=== PATIENT | male | born 1985 | race Caucasian/White ===

== ENCOUNTER 2021-04-04 07:02 | Inpatient (IN) | payer BC, MEDICAID ==
[~2021-04-04 07:02] MED LIST: Dexamethasone 4 MG/ML SDV ONE; Glycopyrrolate 0.2 MG/ML 5 ML MDV ONE; Neostigmine Methylsulfate 1 MG/ML 5 ML Syringe ONE; Ondansetron 4 MG/2 ML SDV ONE; Propofol 200 MG/20 ML SDV ONE; Rocuronium 50 MG/5 ML Vial ONE; Succinylcholine 200 MG/10 ML MDV ONE; cefOXitin 2 GM Vial ONE; fentaNYL 250 MCG/5 ML SDV ONE
[2021-04-04] MEDS ORDERED: Scopolamine 1.5 MG Transdermal Patch TOP ONE (07:15)
[2021-04-04] MEDS ORDERED: Celecoxib 200 MG Cap PO ONE (07:15)
[2021-04-04] MEDS ORDERED: Scopolamine 1.5 MG Transdermal Patch TOP SCH (07:15)
[2021-04-04] MEDS ORDERED: Acetaminophen 500 MG Tab PO ONE (07:15)
[2021-04-04] MEDS ORDERED: Dextrose 5%-Lactated Ringers 1,000 ML IV SCH (07:30)
[2021-04-04] MEDS: cefOXitin 2 GM in Sodium Chloride 0.9% 50 ML IV ONE ×2 (08:41→18:03)
[2021-04-04] MEDS ORDERED: Ketamine 50 MG in Sodium Chloride 0.9% 49.5 ML IV SCH (08:45)
[2021-04-04] MEDS ORDERED: Magnesium Sulfate 3.7 GM in Sodium Chloride 0.9% 100 ML IV SCH (08:45)
[2021-04-04] MEDS ORDERED: Ketamine 500 MG/5 ML MDV IV SCH (08:45)
[2021-04-04] MEDS ORDERED: fentaNYL 250 MCG/5 ML SDV ONE ×2 (08:55→09:07)
[2021-04-04] MEDS ORDERED: CHECK SCOPOLAMINE PATCH DAILY TOP SCH (09:00)
[2021-04-04] MEDS ORDERED: Labetalol 20 MG/4 ML Syringe ONE (09:30)
[2021-04-04] MEDS ORDERED: HYDROmorphone 0.5 MG/0.5 ML Syringe IVPUSH PRN (13:00)
[2021-04-04] MEDS ORDERED: Calcium Gluconate 10% 1 GM/10 ML SDV IVPUSH PRN (13:00)
[2021-04-04] MEDS ORDERED: Acetaminophen 500 MG Tab PO PRN (13:00)
[2021-04-04] MEDS ORDERED: HYDROmorphone 1 MG/ML Syringe IV PRN (13:00)
[2021-04-04] MEDS ORDERED: Albuterol/Ipratropium 3.0-0.5 MG/3 ML Neb Soln INH PRN (13:00)
[2021-04-04] MEDS ORDERED: diphenhydrAMINE 50 MG/ML SDV IVPUSH PRN (13:00)
[2021-04-04] MEDS ORDERED: traMADol 50 MG Tab PO PRN (13:00)
[2021-04-04] MEDS ORDERED: Metoclopramide 10 MG/2 ML SDV IVPUSH PRN (13:00)
[2021-04-04] MEDS: hydrOXYzine HCL 100 MG/2 ML SDV IM PRN ×2 (13:13→19:41)
[2021-04-04] MEDS: oxyCODONE 5 MG Tab PO PRN ×2 (13:26→22:57)
[2021-04-04] MEDS: Ondansetron 4 MG/2 ML SDV IVPUSH PRN ×2 (13:26→21:38)
[2021-04-04] MEDS: cefOXitin 2 GM in Sodium Chloride 0.9% 50 ML IV SCH ×2 (13:40→20:46)
[2021-04-04] MEDS: Acetaminophen 500 MG Tab PO SCH ×2 (13:40→21:21)
[2021-04-04] MEDS ORDERED: Pantoprazole 40 MG Vial IVPUSH SCH (14:00)
[2021-04-04] MEDS: Labetalol 20 MG/4 ML Syringe IVPUSH PRN ×3 (15:19→15:58)
--- NOTE | 2021-04-04 15:49 | PCM.EKG ---
#1 Interpretation EKG Date: 04/04/21 Time: 07:24 Rhythm: NSR Rate (Beats/Min): 76 [place]: Normal P-Wave: Present QRS: Normal ST-T: Normal QT: Normal Comparison: NA - No Prior EKG
[2021-04-04] MEDS ORDERED: MVI, Adult with Vitamin K 10 ML, Thiamine 200 MG, Zinc/Copper/Manganese/Selenium 1 ML i... IV SCH ×4 (16:00)
[2021-04-04] MEDS: Heparin Sodium 5,000 Units/ML Vial SUBCUT SCH (20:44)
[2021-04-04] MEDS: Dextrose 5%-Lactated Ringers 1,000 ML IV SCH (21:42)
[2021-04-05] MEDS ORDERED: Iopamidol 612 MG/ML 50 ML SDV PO STA (02:51)
[2021-04-05] MEDS: cefOXitin 2 GM in Sodium Chloride 0.9% 50 ML IV SCH ×4 (03:09→20:15)
[2021-04-05] MEDS: Dextrose 5%-Lactated Ringers 1,000 ML IV SCH (03:41)
[2021-04-05] MEDS: hydrOXYzine HCL 100 MG/2 ML SDV IM PRN (04:28)
[2021-04-05] MEDS: Acetaminophen 500 MG Tab PO SCH ×3 (06:12→22:13)
[2021-04-05] MEDS ORDERED: Ondansetron 4 MG Tab.DIS PO PRN (07:48)
[2021-04-05] MEDS ORDERED: hydrOXYzine HCl 25 MG Tab PO PRN (07:49)
[2021-04-05] MEDS ORDERED: Dextrose 5%-Lactated Ringers 1,000 ML IV SCH (08:00)
[2021-04-05] MEDS: SCOPOLAMINE PATCH CHECK TOP SCH (08:23)
[2021-04-05] MEDS: Celecoxib 200 MG Cap PO SCH ×2 (08:23→22:13)
[2021-04-05] MEDS: Heparin Sodium 5,000 Units/ML Vial SUBCUT SCH ×2 (08:24→20:14)
--- NOTE | 2021-04-05 09:11 | CR ---
UGI Limited HISTORY: Postbariatric surgery FINDINGS: Patient swallowed water-soluble contrast. Upright views of the abdomen show no evidence of extravasation or obstruction. There is a surgical drain in the left upper quadrant. IMPRESSION: Status post bariatric surgery No extravasation or obstruction seen
[2021-04-05] MEDS: Cyclobenzaprine 10 MG Tab PO PRN (10:49)
[2021-04-05] MEDS ORDERED: traMADol 50 MG Tab PO PRN (11:00)
--- NOTE | 2021-04-05 11:15 | PN ---
DATE OF SERVICE: 04/05/2021 SUBJECTIVE: Constantine is postop day #1. His upper GI was normal. He has had 840 in. Urine output is 1050. ROSLYN drain put out 145 of a serosanguineous drainage. REVIEW OF SYSTEMS: Remainder of review of systems negative for any pertinent positives and negatives. OBJECTIVE: GENERAL: Constantine Garcia is a 35-year-old male. He is alert and orientated. VITAL SIGNS: TPR 98.5, 74, 18, blood pressure 130/75. HEENT: Negative. NECK: Supple. HEART: Regular rate and rhythm. LUNGS: Clear. ABDOMEN: Dressings dry and intact. Abdominal binder is on. EXTREMITIES: Without peripheral edema. ASSESSMENT: 1. Diagnostic laparoscopy with partial proximal gastrectomy with Joshua-en-Y gastrojejunostomy. 2. Liver biopsy. 3. Repair of diaphragmatic hernia. 4. Excision of perigastric lymph nodes. POSTOPERATIVE DIAGNOSES: 1. Severe gastroparesis refractory to medical management. 2. Probable small gastrointestinal stromal tumor junction, gastric body and cardia. 3. Marked hepatomegaly. 4. Paraesophageal hernia. 5. Enlarged perigastric lymph nodes. 6. Date of procedure: 04/04/2021. Surgeon: Elias Charles MD. PLAN: 1. Step 2 gastric bypass diet with no cereal. 2. Decrease IV of D5 LR to 100 mL per hour. 3. Atarax 50 mg q.4 hours p.r.n. pain. 4. Dressing off, may shower. 5. Communication order written to have 3 med cups at bedside and to drink 1 every 20 minutes or 3 per hour and record. 6. Continue use of incentive spirometer and ambulation. 7. We will evaluate p.r.n. or in a.m. Kim Tai PA-C /[id number]
[2021-04-05] MEDS ORDERED: Pantoprazole 40 MG Delayed-Release Granules 1 Packet PO SCH (14:00)
[2021-04-05] MEDS ORDERED: MVI, Adult with Vitamin K 10 ML, Thiamine 200 MG, Zinc/Copper/Manganese/Selenium 1 ML i... IV SCH ×4 (16:00)
[2021-04-06] MEDS: cefOXitin 2 GM in Sodium Chloride 0.9% 50 ML IV SCH ×2 (02:41→07:45)
[2021-04-06] MEDS: Acetaminophen 500 MG Tab PO SCH (05:48)
[2021-04-06] MEDS: Heparin Sodium 5,000 Units/ML Vial SUBCUT SCH (07:45)
[2021-04-06] MEDS: Cyclobenzaprine 10 MG Tab PO PRN (07:53)
[2021-04-06] MEDS ORDERED: Cyanocobalamin (Vitamin B12) 1,000 MCG/ML SDV IM ONE (09:00)
[2021-04-06] MEDS: SCOPOLAMINE PATCH CHECK TOP SCH (09:54)
[2021-04-06] MEDS: Celecoxib 200 MG Cap PO SCH (09:54)
--- NOTE | 2021-04-06 12:23 | DISCH ---
ADMISSION DIAGNOSES: 1. Gastroparesis refractory to medical management. 2. Chronic obstructive pulmonary disease. 3. Mild intermittent asthma. 4. Major depression disorder. 5. Post-traumatic stress disorder. 6. Anxiety. 7. Insomnia. 8. Obesity, body mass index 38. 9. Tubular adenoma of colon. 10.Symptoms consistent with irritable bowel syndrome. DISCHARGE DIAGNOSES: 1. Diagnostic laparoscopy with partial proximal gastrectomy with Joshua-en-Y gastrojejunostomy. 2. Liver biopsy. 3. Repair of paraesophageal diaphragmatic hernia. 4. Excision of perigastric lymph nodes. POSTOPERATIVE DIAGNOSES: 1. Severe gastroparesis refractory to medical management. 2. Probable small gastrointestinal stromal tumor junction of the gastric body and cardia. 3. Marked hepatomegaly. 4. Periesophageal hernia. 5. Enlarged perigastric lymph nodes. 6. Date of procedure, 04/04/2021. Surgeon: Elias Charles MD. HISTORY: Porfirio Garcia is a 35-year-old male with longstanding history of severe gastroparesis secondary to medical management. After preoperative evaluation and discussion of possible risks and possible complications, he wished to proceed with surgical procedure. HOSPITAL COURSE: Porfirio had his surgery on 04/04/2021. He had no operative complications. On postop day #1, he was started on a step 2 gastric bypass diet with no cereal. IV was decreased and on postop day #2, he had adequate oral intake. Pain was controlled on energy protocol. He received adequate dietary nutrition. Vital signs were stable. Oral intake adequate and he was able to be discharged to home. PHYSICAL EXAMINATION: GENERAL: Porfirio Garcia is a 35-year-old male, height 6 feet, weight 280 pounds, BMI 38. VITAL SIGNS: TPR is 97, 61, 18, and blood pressure 132/80. HEENT: Negative. NECK: Supple. HEART: Regular rate and rhythm. LUNGS: Clear. ABDOMEN: Incisions look good. ROSLYN drain will be removed and a 4x4 placed over that. Aquacel dressing on. EXTREMITIES: Without peripheral edema. DISPOSITION: Discharged to home. CONDITION: Stable and improving. FOLLOWUP APPOINTMENTS: With Kim Tai PA-C on 04/14/2021 at 9:30 a.m. HOME MEDICATION: Zofran ODT 4 mg every 4 hours p.r.n. nausea and vomiting #30; he has Celebrex 200 mg b.i.d. #28, which was called to his pharmacy prior to surgery; he is to continue Tylenol Extra Strength 1000 mg p.o. q.8 hours scheduled; Zofran ODT 4 mg every 4 hours, #30; he is to resume home medication tramadol 50 mg every 4 hours p.r.n. pain elsewhere. Discontinue vitamin supplements and medical cannabis vaping. DIET: Step 2 gastric bypass diet without cereal for 2 weeks until 04/19/2021. ACTIVITY: No lifting greater than 10 pounds for 2 weeks. OTHER ACTIVITY: Walk 6 times daily inside your home. Driving: Do not drive for 1 week. Shower/bathing: May shower. Keep operative site clean and dry. Wear abdominal binder for 2 weeks and then as tolerated. Notify provider if any fever, increased pain, swelling, redness, drainage, nausea, or vomiting. SPECIAL INSTRUCTION: 1. Use incentive spirometer 10 times every hour while awake for 1 week. 2. Keep track of protein and liquid intake and bring to clinic appointment. /[id number]
[2021-04-06] MEDS ORDERED: Magnesium Hydroxide 400 MG/5 ML Susp 30 ML Cup PO PRN (18:00)
--- NOTE | 2021-04-25 14:03 | OR ---
DATE OF PROCEDURE: 04/04/2021 SURGEON: Elias Charles MD PREOPERATIVE DIAGNOSIS: Severe gastroparesis refractory to medical management. POSTOPERATIVE DIAGNOSES: 1. Severe gastroparesis refractory to medical management. 2. Probable small gastrointestinal stromal tumor (GIST) overlying the junction of the gastric cardia and body. 3. Marked hepatomegaly. 4. Paraesophageal diaphragmatic hernia. 5. Enlarged perigastric lymph node. OPERATIVE PROCEDURES: Diagnostic laparoscopy with: 1. Partial proximal gastrectomy with Joshua-en-Y gastrojejunostomy (23942). 2. Alex-Cut needle liver biopsy (79901). 3. Repair of paraesophageal diaphragmatic hernia (88612). 4. Excision of probable gastrointestinal stromal tumor overlying the junction of the body and cardia of stomach (65597). 5. Excision of enlarged perigastric lymph node (00770). ANESTHESIA: General. HOTEL SERVICES SUPERVISOR: Kim Tai PA-C INDICATIONS FOR PROCEDURE: The patient is a 35-year-old male who has been worked up for upper abdominal symptoms and found to have a gastroparesis that has presently been refractory to medical management. The plan is to proceed with a diagnostic laparoscopy, laparotomy, and high proximal partial gastrectomy with Joshua-en-Y reconstruction, possible need to proceed with esophagojejunostomy was gone over as well. There still happened to be significant pathology at the area of the esophagogastric junction. The potential risks of the procedure including bleeding, infection, injury to underlying viscera, leaks from GI tract anastomosis, problems with strictures over time were reviewed, and the patient wishes to proceed. DETAILS OF PROCEDURE: The patient was taken to the operative room and after general endotracheal anesthesia was induced, he was placed in a lithotomy position and the abdomen prepped and draped. 15 cm inferior and 5 cm left of the xiphoid process, a transverse incision was made and the peritoneal cavity entered under direct vision with an Optiview trocar, inflated to 15 mmHg pressure with CO2. Laparoscope was reinserted. No underlying trocar insertion site injuries were seen. Following this, 5 additional trocars were placed across the upper and mid abdomen. Related to the patient's obesity, the patient had marked hepatomegaly with the liver being grossly fatty infiltrated given this Alex-Cut needle biopsy obtained from the left lobe of the liver. Minimal bleeding from the biopsy site was controlled with electrocautery. At this point, in the area of the junction of the cardia and body of the stomach along the lesser curvature of stomach, a small gastrointestinal stromal tumor was identified. This was elevated with a clamp and GABE purple load was placed underlying it with excision of the probable gastrointestinal stromal tumor with small amount of abnormal tissue around it to provide a margin. As one began dissecting the area around the esophagogastric junction, the patient was noted to have a significant paraesophageal diaphragmatic hernia. The peritoneum overlying this was then incised and reflected downward and anterior repair of the diaphragmatic hernia repair was accomplished with some 0 Ethibond sutures reinforced with PTFE pledgets. One additional finding in this area was enlarged lymph node located adjacent to the esophagogastric junction of the lesser curvature side. This was excised and sent for histologic evaluation. At this point, the gastrointestinal balloon catheter was inflated 15 mL and pulled up snugly against the EG junction. Gastric wall over the apex of balloon was then marked with electrocautery and balloon catheter deflated and pulled up from the esophagus. The lesser omental tissue was then incised and the stomach was then divided at the level roughly 2 to 3 cm below the esophagogastric junction. Additionally, with a transversely oriented GABE stapler, 2 additional GABE staple loads were then used to complete the proximal gastric division. Some of the tissues proximal division distally was somewhat ischemic, and this was excised and sent as a partial gastrectomy specimen. Attention was then taken to the small bowel. The small bowel was then identified at the ligament of Treitz and small bowel was then traced out 125 cm distal to the area where it divided with a GABE stapler. Small bowel was then traced out additional 125 cm where the [id number] enteroenterostomy was accomplished with an internal firing of the Endo-GABE 60 mm stapler. Common opening was then closed transversely with the same stapler and the angles anastomosed and mesenteric defect approximated with some 0 Ethibond stitch along with fibrin sealant. The divided end of the Joshua limb was then divided a few centimeters along the antecolic position of the Joshua limb up to the level of the approximately divided stomach. The anvil of 25 mm EEA stapler was then passed orally after being attached to [place] sump- type tube and brought down into the gastric pouch. The main body of the EEA stapler was then brought through the opening and the divided end of the Joshua limb brought up the anvil united with it thus creating the gastrojejunostomy. Upon removal of the stapler, double donuts of mucosa were noted within it. Small bowel was closed off with a GABE staple line as well. The gastrojejunostomy was reinforced with some 3-0 Vicryl seromuscular stitch along with an area of fibrin sealant application and leak test was accomplished with injection of 120 mL of air in the proximal gastric pouch while it was submerged with cefoxitin-containing saline solution. No leaks were identified and the patient had a single Hubert-Lucas drain placed through the left lateral trocar site and positioned adjacent to the gastrojejunostomy from there up into the splenic fossa. The trocars were removed and peritoneal cavity deflated. Incisions were closed with some 4-0 Vicryl skin stitch and the drain affixed with 4-0 Vicryl stitch as well, and the patient was taken to the recovery room in satisfactory condition. Physician audiology assistant, Kim Tai, played an essential role in assisting in this case, helping to position the patient, retract structures as needed, as well as suturing and cutting sutures when indicated. Her presence improved patient safety and decreased operative time. Elias Charles MD /[id number]
== END 2021-04-06 10:15 | disposition home or self-care (01) | DRG 327 ==
LOC: JP.MS 07:02 → JP.SDS 07:02 → EDSTATUS 09:15 → JP.2SS 11:40
PROVIDERS: ADMIT Surgery; ATTEND Surgery
PROC: 0D164ZA Bypass Stomach to Jejunum, Percutaneous Endoscopic Approach (ICD-10-PCS; principal; 2021-04-04)
PROC: 0DB64ZZ Excision of Stomach, Percutaneous Endoscopic Approach (ICD-10-PCS; 2021-04-04)
PROC: 0BQT4ZZ Repair Diaphragm, Percutaneous Endoscopic Approach (ICD-10-PCS; 2021-04-04)
PROC: 0FB24ZX Excision of Left Lobe Liver, Percutaneous Endoscopic Approach, Diagnostic (ICD-10-PCS; 2021-04-04)
PROC: 07BB4ZZ Excision of Mesenteric Lymphatic, Percutaneous Endoscopic Approach (ICD-10-PCS; 2021-04-04)
DX: K31.84 Gastroparesis (principal); C49.A0 Gastrointestinal stromal tumor, unspecified site; J44.9 Chronic obstructive pulmonary disease, unspecified; J45.20 Mild intermittent asthma, uncomplicated; F32.9 Major depressive disorder, single episode, unspecified; F43.10 Post-traumatic stress disorder, unspecified; G47.00 Insomnia, unspecified; F41.9 Anxiety disorder, unspecified; D12.6 Benign neoplasm of colon, unspecified; R16.0 Hepatomegaly, not elsewhere classified; K44.9 Diaphragmatic hernia without obstruction or gangrene; R59.0 Localized enlarged lymph nodes; E66.01 Morbid (severe) obesity due to excess calories; Z68.38 Body mass index [BMI] 38.0-38.9, adult; Z79.899 Other long term (current) drug therapy
CPT/HCPCS: 36415; 74240; 74240-26; 86850; 86900; 86901; 88305; 88307; 88313; 88341; 88342; 93005; 94762; A9270-GY; C9113; J0171; J0330; J0694; J1100; J1644; J2405; J2704; J2710; J2795; J3010; J3410; J3411; J3420; J3475; J3490; J7050; J7121